=== PATIENT | male | born 1940 | race Caucasian/White ===

== ENCOUNTER 2021-07-21 11:15 | Outpatient (CLI) | payer MEDICARE, OTHER ==
[2021-07-21 11:53] LABS: BASOPHILS % (AUTO) 1 % (0-1); EOSINOPHILS % (AUTO) 1 % (1-7); LYMPHOCYTES % (AUTO) 23 % (22-44); MEAN CORPUSCULAR HGB CONC 34.5 g/dL (33.2-36.2); MEAN PLATELET VOLUME 7.5 fL (7.4-10.4); MONOCYTES % (AUTO) 6 % (2-9); NEUTROPHILS % (AUTO) 70 % (42-75); PLATELET COUNT 133 x10^3/uL (130-400); RED BLOOD COUNT 4.77 x10^6/uL (4.38-5.82); RED CELL DISTRIBUTION WIDTH 13.8 % (9.4-14.8)
[2021-07-21 12:06] LABS: ALANINE AMINOTRANSFERASE 21 U/L (12-78); ALBUMIN 3.6 g/dL (3.4-5.0); ANION GAP 6 mmol/L (5-15); CALCIUM 9.7 mg/dL (8.5-10.1); CHLORIDE 105 mmol/L (98-107); CREATININE 1.31 mg/dL (0.7-1.3)
[2021-07-21 12:09] LABS: ALKALINE PHOSPHATASE 97 U/L (45-117); BILIRUBIN,TOTAL 1.2 mg/dL (0.2-1.0); TOTAL PROTEIN 6.8 g/dL (6.4-8.2)
[2021-07-21] MEDS ORDERED: CHOL10003 PO (12:59)
[2021-07-21] MEDS ORDERED: ALLO100T30 PO (12:59)
[2021-07-21] MEDS ORDERED: ATOR40TA78 PO (12:59)
[2021-07-21] MEDS ORDERED: OMEG1CAP25 PO (12:59)
[2021-07-21] MEDS ORDERED: LEVE500T8 PO (12:59)
[2021-07-21] MEDS ORDERED: BIMA2.5D EACHEYE (12:59)
[2021-07-21] MEDS ORDERED: LISI40TA9 PO (12:59)
[2021-07-21] MEDS ORDERED: CLOP75TA PO (12:59)
[2021-07-21] MEDS ORDERED: UBID100C24 PO (12:59)
[2021-07-21] MEDS ORDERED: FINA5TAB4 PO (12:59)
== END 2021-07-21 23:59 | disposition home or self-care (01) ==
LOC: STAR 11:15
PROVIDERS: ATTEND Orthopaedic Surgery
DX: Z01.818 Encounter for other preprocedural examination (principal); M16.12 Unilateral primary osteoarthritis, left hip; R94.31 Abnormal electrocardiogram [ECG] [EKG]
CPT/HCPCS: 36415; 80053; 85025; 87081; 93005